=== PATIENT | female | born 1995 | race Caucasian/White ===

== ENCOUNTER → 2017-01-21 | Outpatient (REF) | payer BC | LOC: M SFHCWAGY 13:58 | PROVIDERS: ATTEND Nurse Practitioner Family | DX: Z01.419 Encounter for gynecological examination (general) (routine) without abnormal findings (principal) ==

== ENCOUNTER → 2017-01-21 | Outpatient (REF) | payer BC | LOC: M SFHCWAGY 10:27 | PROVIDERS: ATTEND Nurse Practitioner Family | DX: Z01.419 Encounter for gynecological examination (general) (routine) without abnormal findings (principal) ==